=== PATIENT | female | born 1990 | race Caucasian/White ===

== ENCOUNTER 2019-04-09 20:19 | Emergency (ER) | payer SELFPAY ==
[2019-04-09] MEDS ORDERED: Ibuprofen 800 MG TAB ONE (20:54)
[2019-04-09] MEDS ORDERED: Azithromycin 250 MG TAB ONE (20:54)
== END 2019-04-09 20:55 | disposition home or self-care (01) ==
LOC: BURERS 20:19
DX: J02.0 Streptococcal pharyngitis (principal); F17.210 Nicotine dependence, cigarettes, uncomplicated
CPT/HCPCS: 87430; 99283

== ENCOUNTER 2020-06-19 13:19 | Emergency (ER) | payer SELFPAY ==
[2020-06-19 13:46] LABS: Bilirubin Negative (Negative); Blood, Urine Trace (Negative); Clarity Cloudy (Clear); Glucose, Urine (Dipstick) Negative (Negative); Ketone, Urine Negative (Negative); Leukocyte Moderate (Negative); Nitrite Negative (Negative); Protein, Urine (Dipstick) Negative (Neg-Trace); Urobilinogen 0.2 mg/dL (Less than 2)
[2020-06-19 13:52] LABS: Squamous Epithelial 0-3 HPF (0-3); WBC/HPF 21-50 HPF (0-3)
[2020-06-19 13:53] LABS: Bacteria/HPF 2+ HPF (None Seen); Mucous/LPF 1+ LPF (<2+)
== END 2020-06-19 13:58 | disposition home or self-care (01) ==
LOC: BURERS 13:19
DX: N39.0 Urinary tract infection, site not specified (principal); F17.210 Nicotine dependence, cigarettes, uncomplicated
CPT/HCPCS: 81003; 81015; 99283

== ENCOUNTER 2021-03-23 14:36 | Emergency (ER) | payer SELFPAY ==
[2021-03-24 00:24] LABS: SARS-CoV-2 PCR by NAA DETECTED (NotDetected)
== END 2021-03-23 15:48 | disposition home or self-care (01) ==
LOC: BURERS 14:36
DX: U07.1 COVID-19 (principal); F17.210 Nicotine dependence, cigarettes, uncomplicated
CPT/HCPCS: 99283; U0003; U0005

== ENCOUNTER 2021-06-23 10:22 | Emergency (ER) | payer OTHER, SELFPAY ==
[2021-06-24 20:33] LABS: SARS-CoV-2 PCR by NAA Not Detected (NotDetected)
== END 2021-06-23 12:10 | disposition home or self-care (01) ==
LOC: BURERS 10:22
DX: Z20.822 Contact with and (suspected) exposure to COVID-19 (principal); F17.210 Nicotine dependence, cigarettes, uncomplicated
CPT/HCPCS: 99283; U0003; U0005

== ENCOUNTER 2021-09-28 22:28 | Emergency (ER) | payer OTHER, SELFPAY ==
[2021-09-28] MEDS ORDERED: Azithromycin 250 MG TAB ONE (23:09)
== END 2021-09-28 23:30 | disposition home or self-care (01) ==
LOC: BURERS 22:28
DX: J02.9 Acute pharyngitis, unspecified (principal); F17.210 Nicotine dependence, cigarettes, uncomplicated
CPT/HCPCS: 99283

== ENCOUNTER 2022-03-07 22:47 | Emergency (ER) | payer SELFPAY ==
[2022-03-07 23:23] LABS: Bilirubin Moderate (Negative); Blood, Urine Large (Negative); Glucose, Urine (Dipstick) Negative (Negative); Ketone, Urine Trace mg/dL (Negative); Leukocyte Small (Negative); Nitrite Positive (Negative); Protein, Urine (Dipstick) > or equal to 300 mg/dL (Neg-Trace)
[2022-03-07 23:31] LABS: Clarity Cloudy (Clear); Specific Gravity, Urine Greater/Equal 1.030 (1.005-1.030)
[2022-03-07 23:35] LABS: Pregnancy Test - Urine (BHCG) Negative (Negative); Pregu Control Background? CLEAR/WHITE (CLR/WHITE); Pregu Control Bar Appear? YES (CONTROL BAR); Specific Gravity 1.029 (1.002-1.036)
[2022-03-07 23:39] LABS: Bacteria/HPF 1+ HPF (None Seen); RBC/HPF Greater than 50 HPF (0-3); Squamous Epithelial None Seen HPF (0-3); WBC/HPF Greater Than 50 HPF (0-3)
[2022-03-07] MEDS ORDERED: Sulfameth/Trimethoprim DS 800-160mg TAB ONE (23:48)
== END 2022-03-07 23:50 | disposition home or self-care (01) ==
LOC: BURERS 22:47
DX: N39.0 Urinary tract infection, site not specified (principal); F17.210 Nicotine dependence, cigarettes, uncomplicated
CPT/HCPCS: 81003; 81015; 81025; 87077; 87086; 87186; 99283

== ENCOUNTER 2022-05-15 14:05 | Emergency (ER) | payer SELFPAY ==
[2022-05-15 14:46] LABS: Bilirubin Negative (Negative); Blood, Urine Moderate (Negative); Clarity Slightly Cloudy (Clear); Glucose, Urine (Dipstick) Negative (Negative); Ketone, Urine Negative (Negative); Leukocyte Large (Negative); Nitrite Negative (Negative); Protein, Urine (Dipstick) Negative (Neg-Trace); Urobilinogen 0.2 mg/dL (Less than 2)
[2022-05-15 14:52] LABS: Pregnancy Test - Urine (BHCG) Negative (Negative)
[2022-05-15 14:53] LABS: Pregu Control Background? CLEAR/WHITE (CLR/WHITE); Pregu Control Bar Appear? YES (CONTROL BAR)
[2022-05-15] MEDS ORDERED: Sulfameth/Trimethoprim DS 800-160mg TAB ONE (15:03)
[2022-05-15 15:06] LABS: RBC/HPF 21-50 HPF (0-3)
[2022-05-15 15:07] LABS: Bacteria/HPF 2+ HPF (None Seen)
== END 2022-05-15 15:07 | disposition home or self-care (01) ==
LOC: BURERS 14:05
DX: N39.0 Urinary tract infection, site not specified (principal); F17.210 Nicotine dependence, cigarettes, uncomplicated
CPT/HCPCS: 81003; 81015; 81025; 87086; 99283